=== PATIENT | female | born 1980 | race Caucasian/White ===

== ENCOUNTER → 2016-12-25 | Outpatient (CLI) | payer BC ==
[~2016-12-25] MED LIST: ASPIRIN 81M81 MG/TA2 PO; B-12 500 MCG PO; CAT'S CLAW PO; COLESTID 1GM1 G PO; FISH OIL500 MG PO; MEDROL 4MG DOSPA4 MG PO; MULTIPLE VITAMI1 CAP PO; NO HOME MEDICATIONS; NORCO 325 MG-51 TAB PO; PREDNISONE20 MG PO; PROBIOTIC FORMU1 CAP PO; TUMERIC PO; salonpas TD
== END ==
LOC: COL.RAD 12:07
DX: M62.81 Muscle weakness (generalized) (principal); M79.602 Pain in left arm
CPT/HCPCS: A9585

== ENCOUNTER → 2017-01-08 | Outpatient (REF) | LOC: WSOH 09:46 → WSPT 11:00 | DX: Z02.1 Encounter for pre-employment examination (principal) ==

== ENCOUNTER → 2017-01-10 | Outpatient (REF) | LOC: WSOH 10:21 | DX: Z23 Encounter for immunization (principal) ==

== ENCOUNTER → 2017-07-17 | Outpatient (CLI) | payer OTHER | LOC: COL.RAD 09:02 | DX: E03.9 Hypothyroidism, unspecified (principal); F45.8 Other somatoform disorders; R49.0 Dysphonia ==

== ENCOUNTER → 2017-09-24 | Outpatient (CLI) | payer OTHER ==
[2017-09-24 14:51] LABS: CREATINE KINASE 48 U/L (30-135)
[2017-09-24 14:52] LABS: C-REACTIVE PROTEIN < 0.5 mg/dL (0.0-0.9)
[2017-09-25 00:01] LABS: RHEUMATOID FACTOR-SCREEN <15 IU/mL (0-29)
[2017-09-26 01:00] LABS: ANA SCREEN with REFLEX Negative (Negative)
== END ==
LOC: COL.LAB 10:38
PROVIDERS: Family Medicine
DX: M25.50 Pain in unspecified joint (principal); R94.6 Abnormal results of thyroid function studies

== ENCOUNTER 2017-12-31 16:30 | Outpatient (RCR) | payer OTHER | END 2018-01-15 | disposition home or self-care (01) | LOC: WSPT | DX: M25.512 Pain in left shoulder (principal) ==

== ENCOUNTER 2018-03-18 14:37 | Outpatient (RCR) | payer OTHER | END 2018-03-20 11:46 | disposition home or self-care (01) | LOC: WSPT 14:37 | DX: M25.512 Pain in left shoulder (principal) ==

== ENCOUNTER → 2018-05-05 | Outpatient (CLI) | payer OTHER | LOC: COL.CARD 08:53 | DX: R07.9 Chest pain, unspecified (principal); R06.02 Shortness of breath ==

== ENCOUNTER → 2018-07-21 | Outpatient (CLI) | payer OTHER ==
[2018-07-21 17:22] LABS: BASO # 0.1 (0.0-0.2); BASO % 0.6 % (0.0-2.0); EOS # 0.2 (0.0-0.7); EOS % 2.1 % (0-4.0); GRAN # 4.3 (1.4-6.5); GRAN % 52.1 % (42.2-75.2); HEMATOCRIT 43.3 % (37.0-47.0); HEMOGLOBIN 14.1 g/dl (12.5-16.0); LYMPH # 3.1 (1.2-3.4); LYMPH % 37.5 % (20.0-51.0); MEAN CELL VOLUME 94 fl (80.0-100.0); MEAN CORPUSCULAR HEMOGLOBIN 31 pg (27.0-31.0); MEAN CORPUSCULAR HGB CONC 33 g/dl (33.0-37.0); MEAN PLATELET VOLUME 10.9 fl (7.4-10.4); MONO # 0.6 (0.1-0.6); MONO % 7.3 % (1.7-9.3); PLATELET COUNT 186 K/mm3 (130-400); RED BLOOD COUNT 4.59 M/mm3 (4.10-5.30); REDCELL DISTRIBUTION WIDTH-CV 12.2 % (11.5-14.5)
[2018-07-21 17:27] LABS: CALCIUM 9.2 mg/dL (8.4-10.2); CREATININE, serum 0.62 mg/dL (0.52-1.25); POTASSIUM 3.8 mmol/L (3.4-5.0)
== END ==
LOC: COL.LAB 16:30
PROVIDERS: Family Medicine
DX: R35.0 Frequency of micturition (principal); R10.2 Pelvic and perineal pain; R11.0 Nausea

== ENCOUNTER 2018-08-15 09:11 | Day surgery (SDC) | payer OTHER ==
[~2018-08-15] VITALS: Ht 154.9 cm; Wt 57.0 kg
[2018-08-15] MEDS ORDERED: [UNRECOGNIZED DRUG - OTHER] PO (09:28)
[2018-08-15] MEDS ORDERED: [UNRECOGNIZED DRUG - OTHER] NAS (09:29)
[2018-08-15 09:30] VITALS: BP 90/67; PULSE 81; TEMP 97.8
[2018-08-15] MEDS ORDERED: PROBIOTIC FORMU1 CAP PO (09:30)
[2018-08-15 10:50] VITALS: BP 88/65; PULSE 66; TEMP 98.2
[2018-08-15 11:05] VITALS: BP 91/73; PULSE 63
[2018-08-15 11:20] VITALS: BP 94/67; PULSE 71
[2018-08-15 11:41] VITALS: BP 84/53; PULSE 76
== END 2018-08-15 12:00 | disposition home or self-care (01) ==
LOC: SDCO 09:11
DX: Z86.010 Personal history of colon polyps (principal); K60.1 Chronic anal fissure; K62.89 Other specified diseases of anus and rectum; R10.9 Unspecified abdominal pain; K58.9 Irritable bowel syndrome, unspecified; Z79.899 Other long term (current) drug therapy
CPT/HCPCS: J2250; J2405; J3010; J7030

== ENCOUNTER → 2019-09-17 | Outpatient (CLI) | payer OTHER ==
[~2019-09-17] MED LIST changes: +[UNRECOGNIZED DRUG - OTHER] NAS; +[UNRECOGNIZED DRUG - OTHER] PO
[2019-09-17 09:32] LABS: CHOLESTEROL RISK RATIO 3.2
== END ==
LOC: COL.RAD 08:38
PROVIDERS: Family Medicine
DX: Z13.1 Encounter for screening for diabetes mellitus (principal); Z13.220 Encounter for screening for lipoid disorders; R09.1 Pleurisy

== ENCOUNTER → 2019-11-11 | Outpatient (CLI) | payer OTHER | LOC: MC.RAD 14:53 | DX: Z12.31 Encounter for screening mammogram for malignant neoplasm of breast (principal) ==